=== PATIENT | male | born 1940 | race Caucasian/White ===

== ENCOUNTER 2016-11-03 12:21 | Emergency (ER) | payer OTHER ==
[~2016-11-03] VITALS: Ht 177.8 cm; Wt 119.9 kg
[~2016-11-03 12:21] MED LIST: ALPRAZOLAM1 MG; ATORVASTATIN 10 MG T; ESCITALOPRAM 5 MG; METOPROLOL TART25 MG
[2016-11-03 13:20] VITALS: BP 139/80
[2016-11-03] MEDS ORDERED: TYLENOL WITH C1 EACH PO (13:33)
[2016-11-03] MEDS ORDERED: MOTRIN600 MG PO (13:33)
== END 2016-11-03 14:03 | disposition home or self-care (01) ==
LOC: EME 12:21 → EXP 12:21
DX: M25.511 Pain in right shoulder (principal)
CPT/HCPCS: 73030; 99281; 99283